=== PATIENT | female | born 1995 | race Two or more races ===

== ENCOUNTER 2018-08-07 19:39 | Inpatient (IN) | payer OTHER ==
[~2018-08-07] VITALS: Ht 154.9 cm; Wt 85.3 kg
--- NOTE | 2018-08-07 19:57 | PHYS DOC ---
Adult General Chief Complaint Chief Complaint: SUICDAL IDEATION HPI HPI Patient is a 23 year old female who presents with drug ingestion, suicide attempt She took 16 pills of Coricidin 5:00pm trying to kill herself. She called her mom who lives in [place]. She found her at walker nearby here in [place]. Patient is depressed with thoughts of suicide. Patient hasn't had prior suicide attempts. She doesn't have any physical complaints. The patient 25 weeks . Review of Systems Review of Systems Constitutional: Denies fever or chills Eyes: Denies change in visual acuity, redness, or eye pain HENT: Denies nasal congestion or sore throat Respiratory: Denies cough or shortness of breath Cardiovascular: Denies chest pain or palpitations GI: Denies abdominal pain, nausea, vomiting, bloody stools or diarrhea : Denies dysuria or hematuria Musculoskeletal: Denies back pain or joint pain Integument: Denies rash or skin lesions Neurologic: Denies headache, focal weakness or sensory changes Endocrine: Denies polyuria or polydipsia All other systems were reviewed and found to be within normal limits, except as documented in this note. Current Medications Current Medications Current Medications Medications (Trade) Dose Ordered Sig/Britt Start Time Stop Time Status Last Admin Dose Admin Ceftriaxone Sodium 50 ml @ 100 mls/hr 1X ONCE 08/07/18 21:30 08/07/18 21:59 DC 08/07/18 21:30 100 MLS/HR Allergies Allergies Allergies Coded Allergies Type Severity Reaction Last Updated Verified No Known Drug Allergies 08/07/18 No Physical Exam Physical Exam Constitutional: Well developed, well nourished, no acute distress, non-toxic appearance. HENT: Normocephalic, atraumatic, bilateral external ears normal, oropharynx moist, no oral exudates, nose normal. Eyes: PERRLA, EOMI, conjunctiva normal, no discharge. Neck: Normal range of motion, no tenderness, supple, no stridor. Cardiovascular:Heart rate regular rhythm, no murmur Lungs & Thorax: Bilateral breath sounds clear to auscultation Abdomen: Gravid, Bowel sounds normal, soft, no tenderness, no masses, no pulsatile masses. Heart tones 156 Skin: Warm, dry, no erythema, no rash. Back: No tenderness, no CVA tenderness. Extremities: No tenderness, no cyanosis, no clubbing, ROM intact, no edema. Neurologic: Alert and oriented X 3, normal motor function, normal sensory function, no focal deficits noted. Psychologic: Affect depressed, depressed mood. Current Patient Data Vital Signs Vital Signs Date Time Temp Pulse Resp B/P (MAP) Pulse Ox O2 Delivery O2 Flow Rate FiO2 08/07/18 21:30 78 16 90/50 (63) Room Air 08/07/18 19:44 98.2 99 98.2 Lab Values Laboratory Tests Test 08/07/18 19:52 08/07/18 19:57 08/07/18 20:05 Urine Collection Type Unknown Urine Color Abena Urine Clarity Clear Urine pH 6.0 Urine Specific [place] 1.025 Urine Protein Negative mg/dL (NEG-TRACE) Urine Glucose (UA) Negative mg/dL (NEG) Urine Ketones (Stick) >=80 mg/dL (NEG) Urine Blood Negative (NEG) Urine Nitrite Negative (NEG) Urine Bilirubin Small (NEG) Urine Urobilinogen Dipstick 0.2 mg/dL (0.2 mg/dL) Urine Leukocyte Esterase Moderate (NEG) Urine RBC 0 /HPF (0-2) Urine WBC 11-20 /HPF (0-4) Urine Squamous Epithelial Cells Many /LPF Urine Bacteria Moderate /HPF (0-FEW) Urine Mucus Marked /LPF Urine Opiates Screen Neg (NEG) Urine Methadone Screen Neg (NEG) Urine Barbiturates Neg (NEG) Urine Phencyclidine Screen Pos (NEG) Urine Amphetamine/Methamphetamine Neg (NEG) Urine Benzodiazepines Screen Neg (NEG) Urine Cocaine Screen Neg (NEG) Urine Cannabinoids Screen Neg (NEG) Urine Ethyl Alcohol Neg (NEG) POC Urine HCG, Qualitative Hcg positive (Negative) White Blood Count 11.9 x10^3/uL (4.0-11.0) H Red Blood Count 3.89 x10^6/uL (3.50-5.40) Hemoglobin 12.4 g/dL (12.0-15.5) Hematocrit 35.7 % (36.0-47.0) L Mean Corpuscular Volume 92 fL (79-100) Mean Corpuscular Hemoglobin 32 pg (25-35) Mean Corpuscular Hemoglobin Concent 35 g/dL (31-37) Red Cell Distribution Width 12.6 % (11.5-14.5) Platelet Count 171 x10^3/uL (140-400) Neutrophils (%) (Auto) 79 % (31-73) H Lymphocytes (%) (Auto) 15 % (24-48) L Monocytes (%) (Auto) 5 % (0-9) Eosinophils (%) (Auto) 0 % (0-3) Basophils (%) (Auto) 1 % (0-3) Neutrophils # (Auto) 9.4 x10^3uL (1.8-7.7) H Lymphocytes # (Auto) 1.7 x10^3/uL (1.0-4.8) Monocytes # (Auto) 0.6 x10^3/uL (0.0-1.1) Eosinophils # (Auto) 0.0 x10^3/uL (0.0-0.7) Basophils # (Auto) 0.1 x10^3/uL (0.0-0.2) Sodium Level 138 mmol/L (136-145) Potassium Level 3.7 mmol/L (3.5-5.1) Chloride Level 103 mmol/L (98-107) Carbon Dioxide Level 23 mmol/L (21-32) Anion Gap 12 (6-14) Blood Urea Nitrogen 6 mg/dL (7-20) L Creatinine 0.5 mg/dL (0.6-1.0) L Estimated GFR (Cockcroft-Gault) 152.9 BUN/Creatinine Ratio 12 (6-20) Glucose Level 77 mg/dL (70-99) Calcium Level 8.8 mg/dL (8.5-10.1) Total Bilirubin 0.4 mg/dL (0.2-1.0) Aspartate Amino Transferase (AST) 21 U/L (15-37) Alanine Aminotransferase (ALT) 28 U/L (14-59) Alkaline Phosphatase 80 U/L (46-116) Total Protein 7.0 g/dL (6.4-8.2) Albumin 3.0 g/dL (3.4-5.0) L Albumin/Globulin Ratio 0.8 (1.0-1.7) L Salicylates Level < 2.8 mg/dL (2.8-20.0) L Salicylate Last Dose Date Unk Salicylate Last Dose Time Unk Acetaminophen Level < 2 mcg/ml (10-30) L Acetaminophen Last Dose Date Unk Acetaminophen Last Dose Time Unk Ethyl Alcohol Level < 10 mg/dL (0-10) Laboratory Tests 08/07/18 20:05 Laboratory Tests 08/07/18 20:05 EKG EKG ECG 2018 NSR @ 88 with normal axis and normal intervals, no ST-T wave changes suggestive of ischemia Radiology/Procedures Radiology/Procedures [] Course & Med Decision Making Course & Med Decision Making Pertinent Labs and Imaging studies reviewed. (See chart for details) Emergency Department Course Patient presents with drug ingestion, 25 weeks DDx- toxic ingestion, metabolic derangement, depression with suicidal ideation Patient was stable in the ED. Labs and ECG were unremarkable. U/A showed UTI. Patient given Rocephin IV. Poison control called and recommended 4 hour observation post ingestion. 20:45 Patient medically cleared for behavioral health assessment. 20:45 Sue from PAT team evaluated patient and there are no beds. Placement pending. 21:20 Case discussed discussed with Dr. Abdullahi who agreed with admission. Patient has UTI and was given Rocephin IV. 21:[address] Etienne who want biophysical profile in AM. Dragon Disclaimer Dragon Disclaimer This electronic medical record was generated, in whole or in part, using a voice recognition dictation system. Departure Departure Impression: Primary Impression: Drug overdose, intentional Additional Impressions: Depression with suicidal ideation Suicide attempt by drug ingestion 25 weeks gestation of UTI (urinary tract infection) Disposition: ADMITTED INPATIENT Admitting Physician: Xie. Jain Condition: STABLE Referrals: NO PCP (PCP) Problem Qualifiers REINA TAVERA MD Aug 07, 2018 19:57
[2018-08-07 20:05] LABS: BILIRUBIN,URINE SMALL (NEG); CLARITY,URINE CLEAR; COLOR,URINE AMBER; NITRITE,URINE NEGATIVE (NEG); PROTEIN,URINE NEGATIVE (NEG-TRACE); UROBILINOGEN,URINE 0.2 mg/dL (0.2 mg/dL)
[2018-08-07 20:10] LABS: AMPHETAMINE/METHAMPHETAMINE NEG (NEG); BARBITURATES NEG (NEG); BENZODIAZEPINES NEG (NEG); CANNABINOIDS NEG (NEG); COCAINE NEG (NEG); METHADONE NEG (NEG); OPIATES NEG (NEG); PHENCYCLIDINE POS (NEG)
[2018-08-07 20:14] LABS: BACTERIA,URINE MODERATE /HPF (0-FEW); RBC,URINE 0 /HPF (0-2); SQUAMOUS EPITHELIAL CELL,UR MANY /LPF
[2018-08-07 20:17] LABS: BASO # 0.1 x10^3/uL (0.0-0.2); BASO % 1 % (0-3); EOS % 0 % (0-3); HEMATOCRIT 35.7 % (36.0-47.0); HEMOGLOBIN 12.4 g/dL (12.0-15.5); LYMPH # 1.7 x10^3/uL (1.0-4.8); LYMPH % 15 % (24-48); MEAN CORPUSCULAR HEMOGLOBIN 32 pg (25-35); MEAN CORPUSCULAR HGB CONC 35 g/dL (31-37); MEAN CORPUSCULAR VOLUME 92 fL (79-100); MONO # 0.6 x10^3/uL (0.0-1.1); MONO % 5 % (0-9); NEUT # 9.4 x10^3uL (1.8-7.7); NEUT % 79 % (31-73); PLATELET COUNT 171 x10^3/uL (140-400); RED BLOOD COUNT 3.89 x10^6/uL (3.50-5.40); RED CELL DISTRIBUTION WIDTH 12.6 % (11.5-14.5); WHITE BLOOD COUNT 11.9 x10^3/uL (4.0-11.0)
[2018-08-07 20:28] LABS: CALCIUM 8.8 mg/dL (8.5-10.1); CREATININE 0.5 mg/dL (0.6-1.0); GFR 152.9; POTASSIUM 3.7 mmol/L (3.5-5.1)
[2018-08-07 20:33] LABS: ACETAMIN < 2 mcg/ml (10-30); ETHANOL < 10 mg/dL (0-10); SALIC < 2.8 mg/dL (2.8-20.0)
[2018-08-07 20:34] LABS: ALBUMIN/GLOBULIN RATIO 0.8 (1.0-1.7); TOTAL BILIRUBIN 0.4 mg/dL (0.2-1.0)
--- NOTE | 2018-08-07 22:04 | EKG ---
[facility] [address] [place] [address] Test Date: 2018-08-07 Test Time: 20:15:23 Pat Name: JEREMIAH VALLECILLO Department: Room: 383 1 Gender: F Sales Enablement Manager: : 1995 Requested By: REINA TAVERA Order Number: [id number] Reading MD: Rafael Sidhu MD Measurements Intervals [place] Rate: 88 P: 58 TN: 136 QRS: 52 QRSD: 70 T: 35 QT: 350 QTc: 427 Interpretive Statements SINUS RHYTHM Electronically Signed On 08-08-2018 13:49:41 CDT by Rafael Sidhu MD
[2018-08-07 22:32] VITALS: BP 126/60
--- NOTE | 2018-08-08 01:57 | EKG ---
[facility] [address] [place] [address] Test Date: 2018-08-07 Test Time: 22:07:38 Pat Name: JEREMIAH VALLECILLO Department: Room: 383 1 Gender: F Vegetable Farm Worker: : 1995 Requested By: REINA TAVERA Order Number: [id number] Reading MD: Rafael Sidhu MD Measurements Intervals [place] Rate: 83 P: 49 CO: 148 QRS: 55 QRSD: 70 T: 39 QT: 368 QTc: 438 Interpretive Statements SINUS RHYTHM Electronically Signed On 08-08-2018 13:50:11 CDT by Rafael Sidhu MD
--- NOTE | 2018-08-08 02:32 | RAD ---
CLINICAL HISTORY: 25WK PT OVERDOSE, DR WANTED BPP TO SEE IF BABY IS MOVING COMPARISON: None available. TECHNIQUE: Transabdominal sonographic evaluation was performed FINDINGS: Today's examination demonstrates a single live intrauterine gestation in variable lie. The placenta is anterior. There is normal movements and tone. breathing was not definitively seen. The amniotic fluid level is 10.7 for a biophysical profile score of 8 out of 8. Heart rate is 127 beats per minute. measurements are: BPD - 6.42 cm = 26 weeks 0 days HC - 23.95 cm = 26 weeks 0 days AC - 21.32 cm =25 weeks 6 day FL - 5.09 cm = 27 weeks 2 days The composite gestational age is 26 weeks and 2 days. The estimated weight is 927 +/- 137 g. IMPRESSION: 1. Single live intrauterine gestation with estimated gestational age of 26 weeks 2 days. heart rate was identified measuring 127 bpm. 2. Biophysical profile score of 6 out of 8. Electronically signed by: Lyle Arias MD (08/08/2018 2:28 AM) [facility]
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
--- NOTE | 2018-08-08 10:49 | PDOC2 ---
CONSULT Date of Consult Date of Consult DATE: 08/08/18 TIME: 10:27 Reason for Consult Reason for Consult: with suicide attempt Referring Physician Referring Physician: Dr. Abdullahi Identification/Chief Complaint Chief Complaint Suicide attempt Source Source: Chart review, Patient History of Present Illness Reason for Visit: 23 y/o @ 25 wks gestation with suicide attempt using OTC cold medications. BPP and NST were normal for gestational age. Pt. wanted to end her life. Her grandmother helps care for her 2 children. Her mother lives in [place]. She feels safe at home. SHe is hesitant to give reason for her suicide attempt other than "not wanting to be here any more." Past Medical History Cardiovascular: No pertinent hx Pulmonary: No pertinent hx GI: No pertinent hx Heme/Onc: No pertinent hx Hepatobiliary: No pertinent hx Psych: Other (no documented h/o of depression) Rheumatologic: No pertinent hx Infectious disease: No pertinent hx ENT: No pertinent hx Renal/: No pertinent hx Endocrine: No pertinent hx Past Surgical History Past Surgical History: No pertinent history Current Problem List Problem List Problems Medical Problems: (1) 25 weeks gestation of Status: Acute (2) Depression with suicidal ideation Status: Acute (3) Drug overdose, intentional Status: Acute (4) Suicide attempt by drug ingestion Status: Acute (5) UTI (urinary tract infection) Status: Acute Current Medications Current Medications Current Medications Ceftriaxone Sodium 50 ml @ 100 mls/hr 1X ONCE IV Last administered on at 21:30; Start 08/07/18 at 21:30; Stop 08/07/18 at 21:59; Status DC Ceftriaxone Sodium (Rocephin) 1 gm Q24H IVP ; Start 08/08/18 at 22:00 Allergies Allergies: Coded Allergies: No Known Drug Allergies (Unverified , 08/07/18) ROS General: YES: Malaise, Appetite; No: Chills, Night Sweats, Fatigue, Other PSYCHOLOGICAL ROS: YES: Depression, Suicidal ideation; No: Anxiety, Behavioral Disorder, Concentration difficultie, Decreased libido , Disorientation, Hallucinations, Hostility, Irritablity, Memory difficulties, Mood Swings, Obsessive thoughts, Physical abuse, Sexual abuse, Sleep disturbances, Other Eyes: No Blurry vision, No Decreased vision, No Double vision, No Dry eyes, No Excessive tearing, No Eye Pain, No Itchy Eyes, No Loss of vision, No Photophobia , No Scotomata, No Uses contacts, No Uses glasses, No Other HEENT: No: Heacaches, Visual Changes, Hearing change, Nasal congestion, Nasal discharge, Oral lesions, Sinus pain, Sore Throat, Epistaxis, Sneezing, Snoring, Tinnitus, Vertigo, Vocal changes, Other ALLERGY AND IMMUNOLOGY: No: Hives, Insect Bite Sensitivity, Itchy/Watery Eyes, Nasal Congestion, Post Nasal Drip, Seasonal Allergies, Other Hematological and Lymphatic: No: Bleeding Problems, Blood Clots, Blood Transfusions, Brusing, Night Sweats, Pallor, Swollen Lymph Nodes, Other ENDOCRINE: No: Breast Changes, Galactorrhea, Hair Pattern Changes, Hot Flashes , Malaise/lethargy, Mood Swings, Palpitations, Polydipsia/polyuria, Skin Changes , Temperature Intolerance, Unexpected Weight Changes, Other Breast: No New/Changing Breast Lumps, No Nipple changes, No Nipple discharge, No Other Respiratory: No: Cough, Hemoptysis, Orthopnea, Pleuritic Pain, Shortness of breath, SOB with excertion, Sputum Changes, Stridor, Tachypnea, Wheezing, Other Cardiovascular: No Chest Pain, No Palpitations, No Orthopnea, No Paroxysmal Noc. Dyspnea, No Edema, No Lt Headedness, No Other Gastrointestinal: No Nausea, No Vomiting, No Abdominal Pain, No Diarrhea, No Constipation, No Melena, No Hematochezia, No Other Physical Exam General: Alert, Cooperative, No acute distress HEENT: PERRLA Lungs: Clear to auscultation Heart: Regular rate Abdomen: Soft, No tenderness Psych/Mental Status: Other (depressed mood) Vitals VITALS Vital Signs Date Time Temp Pulse Resp B/P (MAP) Pulse Ox O2 Delivery O2 Flow Rate FiO2 08/07/18 22:32 98.3 91 20 126/60 (82) Room Air 98.3 08/07/18 19:44 99 Labs Labs Laboratory Tests Test 08/07/18 19:52 08/07/18 19:57 08/07/18 20:05 Urine Collection Type Unknown Urine Color Abena Urine Clarity Clear Urine pH 6.0 Urine Specific [place] 1.025 Urine Protein Negative mg/dL (NEG-TRACE) Urine Glucose (UA) Negative mg/dL (NEG) Urine Ketones (Stick) >=80 mg/dL (NEG) Urine Blood Negative (NEG) Urine Nitrite Negative (NEG) Urine Bilirubin Small (NEG) Urine Urobilinogen Dipstick 0.2 mg/dL (0.2 mg/dL) Urine Leukocyte Esterase Moderate (NEG) Urine RBC 0 /HPF (0-2) Urine WBC 11-20 /HPF (0-4) Urine Squamous Epithelial Cells Many /LPF Urine Bacteria Moderate /HPF (0-FEW) Urine Mucus Marked /LPF Urine Opiates Screen Neg (NEG) Urine Methadone Screen Neg (NEG) Urine Barbiturates Neg (NEG) Urine Phencyclidine Screen Pos (NEG) Urine Amphetamine/Methamphetamine Neg (NEG) Urine Benzodiazepines Screen Neg (NEG) Urine Cocaine Screen Neg (NEG) Urine Cannabinoids Screen Neg (NEG) Urine Ethyl Alcohol Neg (NEG) Bedside Urine HCG, Qualitative Hcg positive (Negative) White Blood Count 11.9 x10^3/uL (4.0-11.0) Red Blood Count 3.89 x10^6/uL (3.50-5.40) Hemoglobin 12.4 g/dL (12.0-15.5) Hematocrit 35.7 % (36.0-47.0) Mean Corpuscular Volume 92 fL (79-100) Mean Corpuscular Hemoglobin 32 pg (25-35) Mean Corpuscular Hemoglobin Concent 35 g/dL (31-37) Red Cell Distribution Width 12.6 % (11.5-14.5) Platelet Count 171 x10^3/uL (140-400) Neutrophils (%) (Auto) 79 % (31-73) Lymphocytes (%) (Auto) 15 % (24-48) Monocytes (%) (Auto) 5 % (0-9) Eosinophils (%) (Auto) 0 % (0-3) Basophils (%) (Auto) 1 % (0-3) Neutrophils # (Auto) 9.4 x10^3uL (1.8-7.7) Lymphocytes # (Auto) 1.7 x10^3/uL (1.0-4.8) Monocytes # (Auto) 0.6 x10^3/uL (0.0-1.1) Eosinophils # (Auto) 0.0 x10^3/uL (0.0-0.7) Basophils # (Auto) 0.1 x10^3/uL (0.0-0.2) Sodium Level 138 mmol/L (136-145) Potassium Level 3.7 mmol/L (3.5-5.1) Chloride Level 103 mmol/L (98-107) Carbon Dioxide Level 23 mmol/L (21-32) Anion Gap 12 (6-14) Blood Urea Nitrogen 6 mg/dL (7-20) Creatinine 0.5 mg/dL (0.6-1.0) Estimated GFR (Cockcroft-Gault) 152.9 BUN/Creatinine Ratio 12 (6-20) Glucose Level 77 mg/dL (70-99) Calcium Level 8.8 mg/dL (8.5-10.1) Total Bilirubin 0.4 mg/dL (0.2-1.0) Aspartate Amino Transf (AST/SGOT) 21 U/L (15-37) Alanine Aminotransferase (ALT/SGPT) 28 U/L (14-59) Alkaline Phosphatase 80 U/L (46-116) Total Protein 7.0 g/dL (6.4-8.2) Albumin 3.0 g/dL (3.4-5.0) Albumin/Globulin Ratio 0.8 (1.0-1.7) Salicylates Level < 2.8 mg/dL (2.8-20.0) Salicylate Last Dose Date Unk Salicylate Last Dose Time Unk Acetaminophen Level < 2 mcg/ml (10-30) Acetaminophen Last Dose Date Unk Acetaminophen Last Dose Time Unk Ethyl Alcohol Level < 10 mg/dL (0-10) Laboratory Tests Test 08/07/18 19:52 08/07/18 19:57 08/07/18 20:05 Urine Collection Type Unknown Urine Color Abena Urine Clarity Clear Urine pH 6.0 Urine Specific [place] 1.025 Urine Protein Negative mg/dL (NEG-TRACE) Urine Glucose (UA) Negative mg/dL (NEG) Urine Ketones (Stick) >=80 mg/dL (NEG) Urine Blood Negative (NEG) Urine Nitrite Negative (NEG) Urine Bilirubin Small (NEG) Urine Urobilinogen Dipstick 0.2 mg/dL (0.2 mg/dL) Urine Leukocyte Esterase Moderate (NEG) Urine RBC 0 /HPF (0-2) Urine WBC 11-20 /HPF (0-4) Urine Squamous Epithelial Cells Many /LPF Urine Bacteria Moderate /HPF (0-FEW) Urine Mucus Marked /LPF Urine Opiates Screen Neg (NEG) Urine Methadone Screen Neg (NEG) Urine Barbiturates Neg (NEG) Urine Phencyclidine Screen Pos (NEG) Urine Amphetamine/Methamphetamine Neg (NEG) Urine Benzodiazepines Screen Neg (NEG) Urine Cocaine Screen Neg (NEG) Urine Cannabinoids Screen Neg (NEG) Urine Ethyl Alcohol Neg (NEG) Bedside Urine HCG, Qualitative Hcg positive (Negative) White Blood Count 11.9 x10^3/uL (4.0-11.0) Red Blood Count 3.89 x10^6/uL (3.50-5.40) Hemoglobin 12.4 g/dL (12.0-15.5) Hematocrit 35.7 % (36.0-47.0) Mean Corpuscular Volume 92 fL (79-100) Mean Corpuscular Hemoglobin 32 pg (25-35) Mean Corpuscular Hemoglobin Concent 35 g/dL (31-37) Red Cell Distribution Width 12.6 % (11.5-14.5) Platelet Count 171 x10^3/uL (140-400) Neutrophils (%) (Auto) 79 % (31-73) Lymphocytes (%) (Auto) 15 % (24-48) Monocytes (%) (Auto) 5 % (0-9) Eosinophils (%) (Auto) 0 % (0-3) Basophils (%) (Auto) 1 % (0-3) Neutrophils # (Auto) 9.4 x10^3uL (1.8-7.7) Lymphocytes # (Auto) 1.7 x10^3/uL (1.0-4.8) Monocytes # (Auto) 0.6 x10^3/uL (0.0-1.1) Eosinophils # (Auto) 0.0 x10^3/uL (0.0-0.7) Basophils # (Auto) 0.1 x10^3/uL (0.0-0.2) Sodium Level 138 mmol/L (136-145) Potassium Level 3.7 mmol/L (3.5-5.1) Chloride Level 103 mmol/L (98-107) Carbon Dioxide Level 23 mmol/L (21-32) Anion Gap 12 (6-14) Blood Urea Nitrogen 6 mg/dL (7-20) Creatinine 0.5 mg/dL (0.6-1.0) Estimated GFR (Cockcroft-Gault) 152.9 BUN/Creatinine Ratio 12 (6-20) Glucose Level 77 mg/dL (70-99) Calcium Level 8.8 mg/dL (8.5-10.1) Total Bilirubin 0.4 mg/dL (0.2-1.0) Aspartate Amino Transf (AST/SGOT) 21 U/L (15-37) Alanine Aminotransferase (ALT/SGPT) 28 U/L (14-59) Alkaline Phosphatase 80 U/L (46-116) Total Protein 7.0 g/dL (6.4-8.2) Albumin 3.0 g/dL (3.4-5.0) Albumin/Globulin Ratio 0.8 (1.0-1.7) Salicylates Level < 2.8 mg/dL (2.8-20.0) Salicylate Last Dose Date Unk Salicylate Last Dose Time Unk Acetaminophen Level < 2 mcg/ml (10-30) Acetaminophen Last Dose Date Unk Acetaminophen Last Dose Time Unk Ethyl Alcohol Level < 10 mg/dL (0-10) Assessment/Plan Assessment/Plan A: 25 wks IUP Major Depression with suicide attempt P: Pt. to be transferred to Psych facility RONNA TRAN Jr, MD Aug 08, 2018 10:49
[2018-08-08 10:52] VITALS: BP 97/47
[2018-08-08] MEDS ORDERED: LORazepam 1 MG TABLET PO ONE (15:45)
[2018-08-08 16:02] VITALS: BP 100/55
[2018-08-08 18:24] VITALS: BP 106/57
[2018-08-08 18:30] VITALS: BP 106/57
[2018-08-08] MEDS ORDERED: cefTRIAXone IM 1 GM VIAL IM ONE (21:00)
[2018-08-08] MEDS ORDERED: cefTRIAXone IV Push 1 GM VIAL. IVP SCH (22:00)
[2018-08-08 23:35] VITALS: BP 99/55
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
[2018-08-09 09:09] LABS: ALBUMIN 2.8 g/dL (3.4-5.0); ALBUMIN/GLOBULIN RATIO 0.8 (1.0-1.7); CALCIUM 8.4 mg/dL (8.5-10.1); CREATININE 0.5 mg/dL (0.6-1.0); GFR 152.9; TOTAL BILIRUBIN 0.2 mg/dL (0.2-1.0); TOTAL PROTEIN 6.4 g/dL (6.4-8.2)
--- NOTE | 2018-08-09 11:13 | PDOC ---
OB Progress Note Date of Service 08/09/18 Time of Evaluation 1110 Problem List Problems Medical Problems: (1) 25 weeks gestation of Status: Acute (2) Depression with suicidal ideation Status: Acute (3) Drug overdose, intentional Status: Acute (4) Suicide attempt by drug ingestion Status: Acute (5) UTI (urinary tract infection) Status: Acute Notes Pt. feeling well. No changes. Lab Laboratory Tests Test 08/07/18 19:52 08/07/18 19:57 08/07/18 20:05 08/09/18 08:35 Urine Collection Type Unknown Urine Color Abena Urine Clarity Clear Urine pH 6.0 Urine Specific [place] 1.025 Urine Protein Negative mg/dL (NEG-TRACE) Urine Glucose (UA) Negative mg/dL (NEG) Urine Ketones (Stick) >=80 mg/dL (NEG) Urine Blood Negative (NEG) Urine Nitrite Negative (NEG) Urine Bilirubin Small (NEG) Urine Urobilinogen Dipstick 0.2 mg/dL (0.2 mg/dL) Urine Leukocyte Esterase Moderate (NEG) Urine RBC 0 /HPF (0-2) Urine WBC 11-20 /HPF (0-4) Urine Squamous Epithelial Cells Many /LPF Urine Bacteria Moderate /HPF (0-FEW) Urine Mucus Marked /LPF Urine Opiates Screen Neg (NEG) Urine Methadone Screen Neg (NEG) Urine Barbiturates Neg (NEG) Urine Phencyclidine Screen Pos (NEG) Urine Amphetamine/Methamphetamine Neg (NEG) Urine Benzodiazepines Screen Neg (NEG) Urine Cocaine Screen Neg (NEG) Urine Cannabinoids Screen Neg (NEG) Urine Ethyl Alcohol Neg (NEG) Bedside Urine HCG, Qualitative Hcg positive (Negative) White Blood Count 11.9 x10^3/uL (4.0-11.0) Red Blood Count 3.89 x10^6/uL (3.50-5.40) Hemoglobin 12.4 g/dL (12.0-15.5) Hematocrit 35.7 % (36.0-47.0) Mean Corpuscular Volume 92 fL (79-100) Mean Corpuscular Hemoglobin 32 pg (25-35) Mean Corpuscular Hemoglobin Concent 35 g/dL (31-37) Red Cell Distribution Width 12.6 % (11.5-14.5) Platelet Count 171 x10^3/uL (140-400) Neutrophils (%) (Auto) 79 % (31-73) Lymphocytes (%) (Auto) 15 % (24-48) Monocytes (%) (Auto) 5 % (0-9) Eosinophils (%) (Auto) 0 % (0-3) Basophils (%) (Auto) 1 % (0-3) Neutrophils # (Auto) 9.4 x10^3uL (1.8-7.7) Lymphocytes # (Auto) 1.7 x10^3/uL (1.0-4.8) Monocytes # (Auto) 0.6 x10^3/uL (0.0-1.1) Eosinophils # (Auto) 0.0 x10^3/uL (0.0-0.7) Basophils # (Auto) 0.1 x10^3/uL (0.0-0.2) Sodium Level 138 mmol/L (136-145) 140 mmol/L (136-145) Potassium Level 3.7 mmol/L (3.5-5.1) 4.0 mmol/L (3.5-5.1) Chloride Level 103 mmol/L (98-107) 105 mmol/L (98-107) Carbon Dioxide Level 23 mmol/L (21-32) 22 mmol/L (21-32) Anion Gap 12 (6-14) 13 (6-14) Blood Urea Nitrogen 6 mg/dL (7-20) 5 mg/dL (7-20) Creatinine 0.5 mg/dL (0.6-1.0) 0.5 mg/dL (0.6-1.0) Estimated GFR (Cockcroft-Gault) 152.9 152.9 BUN/Creatinine Ratio 12 (6-20) 10 (6-20) Glucose Level 77 mg/dL (70-99) 77 mg/dL (70-99) Calcium Level 8.8 mg/dL (8.5-10.1) 8.4 mg/dL (8.5-10.1) Total Bilirubin 0.4 mg/dL (0.2-1.0) 0.2 mg/dL (0.2-1.0) Aspartate Amino Transf (AST/SGOT) 21 U/L (15-37) 17 U/L (15-37) Alanine Aminotransferase (ALT/SGPT) 28 U/L (14-59) 22 U/L (14-59) Alkaline Phosphatase 80 U/L (46-116) 78 U/L (46-116) Total Protein 7.0 g/dL (6.4-8.2) 6.4 g/dL (6.4-8.2) Albumin 3.0 g/dL (3.4-5.0) 2.8 g/dL (3.4-5.0) Albumin/Globulin Ratio 0.8 (1.0-1.7) 0.8 (1.0-1.7) Salicylates Level < 2.8 mg/dL (2.8-20.0) Salicylate Last Dose Date Unk Salicylate Last Dose Time Unk Acetaminophen Level < 2 mcg/ml (10-30) Acetaminophen Last Dose Date Unk Acetaminophen Last Dose Time Unk Ethyl Alcohol Level < 10 mg/dL (0-10) Laboratory Tests Test 08/09/18 08:35 Sodium Level 140 mmol/L (136-145) Potassium Level 4.0 mmol/L (3.5-5.1) Chloride Level 105 mmol/L (98-107) Carbon Dioxide Level 22 mmol/L (21-32) Anion Gap 13 (6-14) Blood Urea Nitrogen 5 mg/dL (7-20) Creatinine 0.5 mg/dL (0.6-1.0) Estimated GFR (Cockcroft-Gault) 152.9 BUN/Creatinine Ratio 10 (6-20) Glucose Level 77 mg/dL (70-99) Calcium Level 8.4 mg/dL (8.5-10.1) Total Bilirubin 0.2 mg/dL (0.2-1.0) Aspartate Amino Transf (AST/SGOT) 17 U/L (15-37) Alanine Aminotransferase (ALT/SGPT) 22 U/L (14-59) Alkaline Phosphatase 78 U/L (46-116) Total Protein 6.4 g/dL (6.4-8.2) Albumin 2.8 g/dL (3.4-5.0) Albumin/Globulin Ratio 0.8 (1.0-1.7) Medications Current Medications Ceftriaxone Sodium 50 ml @ 100 mls/hr 1X ONCE IV Last administered on at 21:30; Start 08/07/18 at 21:30; Stop 08/07/18 at 21:59; Status DC Ceftriaxone Sodium (Rocephin) 1 gm Q24H IVP ; Start 08/08/18 at 22:00 Lorazepam (Ativan) 1 mg 1X ONCE PO Last administered on 08/08/18at 15:27; Start 08/08/18 at 15:45; Stop 08/08/18 at 15:46; Status DC Ceftriaxone Sodium (Rocephin Im) 1 gm 1X ONCE IM Last administered on at 22:07; Start 08/08/18 at 21:00; Stop 08/08/18 at 21:01; Status DC Assessment 25 wks IUP Major Depression Plan of Care: Continue current Tx, Mgmt RONNA TRAN Jr, MD Aug 09, 2018 11:13
[2018-08-09 11:45] VITALS: BP 94/55
[2018-08-09] MEDS ORDERED: PSYLLIUM HUSK (SUGAR FREE) 1 PKT PACKET PO SCH (13:30)
[2018-08-09 18:27] VITALS: BP 122/61
[2018-08-09 20:25] VITALS: BP 113/58
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
[2018-08-10 08:28] VITALS: BP 116/61
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
[2018-08-10] MEDS ORDERED: PSYL3.4P PO (14:00)
--- NOTE | 2018-08-10 14:01 | DISCH ---
DISCHARGE DISCHARGE INFORMATION: DISCHARGE DATE: Aug 10, 2018 FINAL DIAGNOSIS Problems Medical Problems: (1) 25 weeks gestation of Status: Acute (2) Depression with suicidal ideation Status: Acute (3) Drug overdose, intentional Status: Acute (4) Suicide attempt by drug ingestion Status: Acute (5) UTI (urinary tract infection) Status: Acute CONDITION ON DISCHARGE: Stable CODE STATUS: Code Status: Full CORRECTION: SNF STAY <30 DAYS: No HOSPICE: HOSPICE: No HOSPICE EVAL & TREAT: No LTAC: ADMIT TO LTAC: No POST DISCHARGE ORDERS: ACTIVITY ORDERS: No restrictions WEIGHT BEARING STATUS: No restrictions DIET AFTER DISCHARGE: Regular CHECKS AFTER DISCHARGE: CHECKS AFTER DISCHARGE: Check blood press - daily FOLLOW-UP: PHYSICIAN FOLLOW-UP: Dr. Etienne - Fieldwork Coordinator PAUL KIDD MD Aug 10, 2018 14:01
[2018-08-10 16:25] VITALS: BP 100/52
== END 2018-08-10 16:35 | DRG 831 ==
LOC: ER 19:39 → 3 SO LND 21:51
PROVIDERS: ADMIT Internal Medicine; ATTEND Internal Medicine
DX: O9A.212 Injury, poisoning and certain other consequences of external causes complicating pregnancy, second trimester (principal); E43 Unspecified severe protein-calorie malnutrition; Z3A.25 25 weeks gestation of pregnancy; Y92.89 Other specified places as the place of occurrence of the external cause; F32.9 Major depressive disorder, single episode, unspecified; O99.342 Other mental disorders complicating pregnancy, second trimester; O23.42 Unspecified infection of urinary tract in pregnancy, second trimester; O21.2 Late vomiting of pregnancy; O99.332 Smoking (tobacco) complicating pregnancy, second trimester; T39.1X2A Poisoning by 4-Aminophenol derivatives, intentional self-harm, initial encounter; T45.0X2A Poisoning by antiallergic and antiemetic drugs, intentional self-harm, initial encounter; T48.3X2A Poisoning by antitussives, intentional self-harm, initial encounter; K59.00 Constipation, unspecified; F17.210 Nicotine dependence, cigarettes, uncomplicated; O25.12 Malnutrition in pregnancy, second trimester
CPT/HCPCS: 36415; 76819; 80053; 80307; 80329; 81001; 81025; 85025; 87086; 93005; G0480; G6039; J0690; J0696; G0479

== ENCOUNTER 2019-02-02 17:00 | Emergency (ER) | payer SELFPAY ==
[~2019-02-02] VITALS: Ht 157.5 cm; Wt 81.6 kg
[~2019-02-02 17:00] MED LIST: PSYL3.4P PO
[2019-02-02] MEDS ORDERED: DEXAMETHASONE SOD PHOS 20 MG/5 ML VIAL. IM ONE (18:00)
[2019-02-02] MEDS ORDERED: diphenhydrAMINE HCL 25 MG CAPSULE PO ONE (18:00)
--- NOTE | 2019-02-02 18:03 | PHYS DOC ---
Past Medical History Past Medical History: No Pertinent History Past Surgical History: No Surgical History Alcohol Use: Occasionally Drug Use: None Adult General Chief Complaint Chief Complaint: ALLERGIC REACTION HPI HPI Patient is a 23 year old female was presenting with chief complaint of a bug bite or some type of bite in the back of her throat. Apparent she was having intercourse she thinks something called into her mouth. Currently feels a little swollen back there but breathing fine Review of Systems Review of Systems Constitutional: Denies fever or chills [] Cardiovascular: No additional information not addressed in HPI [] GI: Denies abdominal pain, nausea, vomiting, bloody stools or diarrhea [] : Denies dysuria or hematuria [] All other systems were reviewed and found to be within normal limits, except as documented in this note. Current Medications Current Medications Current Medications Medications (Trade) Dose Ordered Sig/Britt Start Time Stop Time Status Last Admin Dose Admin Dexamethasone Sodium Phosphate (Decadron) 10 mg 1X ONCE 02/02/19 18:00 02/02/19 18:01 DC Diphenhydramine HCl (Benadryl) 50 mg 1X ONCE 02/02/19 18:00 02/02/19 18:01 DC Allergies Allergies Allergies Coded Allergies Type Severity Reaction Last Updated Verified No Known Drug Allergies 08/07/18 No Physical Exam Physical Exam Constitutional: Well developed, well nourished, no acute distress, non-toxic appearance. [] HENT: Normocephalic, atraumatic, bilateral external ears normal, oropharynx moist, no oral exudates, nose normal. []There is a small pinpoint erythematous lesion on the posterior oropharynx no swelling uvula normal Eyes: PERRLA, EOMI, conjunctiva normal, no discharge. [] Neck: Normal range of motion, no tenderness, supple, no stridor. [] Cardiovascular:Heart rate regular rhythm, no murmur [] Lungs & Thorax: Bilateral breath sounds clear to auscultation [] Abdomen: Bowel sounds normal, soft, no tenderness, no masses, no pulsatile masses. [] Skin: Warm, dry, no erythema, no rash. [] Back: No tenderness, no CVA tenderness. [] Extremities: No tenderness, no cyanosis, no clubbing, ROM intact, no edema. [] Neurologic: Alert and oriented X 3, normal motor function, normal sensory function, no focal deficits noted. [] Psychologic: Affect normal, judgement normal, mood normal. [] Current Patient Data Vital Signs Vital Signs Date Time Temp Pulse Resp B/P (MAP) Pulse Ox O2 Delivery O2 Flow Rate FiO2 02/02/19 17:26 98.0 98 16 131/78 (95) 97 Room Air 98.0 EKG EKG [] Radiology/Procedures Radiology/Procedures [] Course & Med Decision Making Course & Med Decision Making Pertinent Labs and Imaging studies reviewed. (See chart for details) []Possibly some sort of a superficial bite to the posterior oral pharynx patient was given a dose of Decadron due to report of some sensation of throat swelling however no obvious evidence of this on exam Benadryl was also given patient is stable for discharge Dragon Disclaimer Dragon Disclaimer This electronic medical record was generated, in whole or in part, using a voice recognition dictation system. Departure Departure Impression: Primary Impression: Allergic reaction Disposition: HOME, SELF-CARE Condition: STABLE Patient Instructions: Sore Throat, [id number] THUAN SANTIAGO MD Feb 02, 2019 18:03
[2019-02-02 18:15] VITALS: BP 115/64
== END 2019-02-02 18:29 | disposition home or self-care (01) ==
LOC: ER 17:00
DX: T63.481A Toxic effect of venom of other arthropod, accidental (unintentional), initial encounter (principal); Y92.89 Other specified places as the place of occurrence of the external cause
CPT/HCPCS: 96372; 99283; J1100; Q0163

== ENCOUNTER 2019-09-08 04:52 | Emergency (ER) | payer MEDICAID ==
[~2019-09-08] VITALS: Ht 157.5 cm; Wt 81.6 kg
--- NOTE | 2019-09-08 05:18 | PHYS DOC ---
Past Medical History Past Medical History: No Pertinent History (STEVO JIMENEZ MD) Past Surgical History: No Surgical History (STEVO JIMENEZ MD) Alcohol Use: Occasionally Drug Use: None (STEVO JIMENEZ MD) Adult General Chief Complaint Chief Complaint: ABDOMINAL PAIN IN HPI HPI 24-year-old female presents to emergency department with complaints of abdominal pain- left upper quadrant/back pain. Patient is a 16 week, with LMP 05/15/19. Patient states she developed abdominal as well as back pain around 11 this evening states she attempted to drink water, walk as well as rest without significant improvement. She contacted the [facility] which is where her [facility] is located. She denies any vaginal discharge/vaginal bleeding/leakage of fluid. She describes her pain as feeling as if she is in labor. Patient around the same time states she developed nausea, vomiting x 2, chills. Patient states she has not felt the baby move however states with this she has not started feeling the baby move as of yet. Nothing makes her symptoms worse or better. (STEVO JIMENEZ MD) Review of Systems Review of Systems Constitutional: chills HENT: Denies nasal congestion or sore throat [] Respiratory: Denies cough or shortness of breath [] Cardiovascular: No additional information not addressed in HPI [] GI: + abdominal pain, nausea, vomiting, no bloody stools or diarrhea [] : Denies dysuria or hematuria [] Musculoskeletal: + back pain Integument: Denies rash or skin lesions [] Neurologic: Denies headache, focal weakness or sensory changes [] All other systems were reviewed and found to be within normal limits, except as documented in this note. (STEVO JIMENEZ MD) Current Medications Current Medications Current Medications Medications (Trade) Dose Ordered Sig/Britt Start Time Stop Time Status Last Admin Dose Admin Ondansetron HCl (Zofran) 4 mg 1X ONCE 09/08/19 06:15 09/08/19 06:16 DC (EDI QUIROGA MD) Allergies Allergies Allergies Coded Allergies Type Severity Reaction Last Updated Verified No Known Drug Allergies 08/07/18 No (EDI QUIROGA MD) Physical Exam Physical Exam Constitutional: Well developed, well nourished, no acute distress, non-toxic appearance. [] HENT: Normocephalic, atraumatic, bilateral external ears normal, oropharynx moist, no oral exudates, nose normal. [] Eyes: PERRLA, EOMI, conjunctiva normal, no discharge. [] Neck: Normal range of motion, no tenderness, supple, no stridor. [] Cardiovascular:Heart rate regular rhythm, no murmur [] Lungs & Thorax: Bilateral breath sounds clear to auscultation [] Abdomen: Bowel sounds normal, soft, TTP left upper quadrant, no masses, no pulsatile masses. [] Skin: Warm, dry, no erythema, no rash. [] Back: No tenderness, no CVA tenderness. [] Extremities: No tenderness, no edema. [] Neurologic: Alert and oriented X 3, no focal deficits noted. [] Psychologic: Affect normal, judgement normal, mood normal. [] Speculum Exam: + white discharge present, no leakage of fluid, bleeding, or opening of cervical os (STEVO JIMENEZ MD) Current Patient Data Vital Signs Vital Signs Date Time Temp Pulse Resp B/P (MAP) Pulse Ox O2 Delivery O2 Flow Rate FiO2 09/08/19 05:02 97.3 80 18 118/68 (85) 98 Room Air 97.3 (EDI QUIROGA MD) Lab Values Laboratory Tests Test 09/08/19 05:30 White Blood Count 8.6 x10^3/uL (4.0-11.0) Red Blood Count 4.01 x10^6/uL (3.50-5.40) Hemoglobin 12.7 g/dL (12.0-15.5) Hematocrit 36.7 % (36.0-47.0) Mean Corpuscular Volume 92 fL (79-100) Mean Corpuscular Hemoglobin 32 pg (25-35) Mean Corpuscular Hemoglobin Concent 35 g/dL (31-37) Red Cell Distribution Width 12.8 % (11.5-14.5) Platelet Count 179 x10^3/uL (140-400) Neutrophils (%) (Auto) 67 % (31-73) Lymphocytes (%) (Auto) 24 % (24-48) Monocytes (%) (Auto) 7 % (0-9) Eosinophils (%) (Auto) 1 % (0-3) Basophils (%) (Auto) 1 % (0-3) Neutrophils # (Auto) 5.8 x10^3/uL (1.8-7.7) Lymphocytes # (Auto) 2.1 x10^3/uL (1.0-4.8) Monocytes # (Auto) 0.6 x10^3/uL (0.0-1.1) Eosinophils # (Auto) 0.1 x10^3/uL (0.0-0.7) Basophils # (Auto) 0.1 x10^3/uL (0.0-0.2) Urine Collection Type Unknown Urine Color Yellow Urine Clarity Cloudy Urine pH 6.0 Urine Specific Baxter >=1.030 Urine Protein Negative mg/dL (NEG-TRACE) Urine Glucose (UA) Negative mg/dL (NEG) Urine Ketones (Stick) Negative mg/dL (NEG) Urine Blood Negative (NEG) Urine Nitrite Negative (NEG) Urine Bilirubin Negative (NEG) Urine Urobilinogen Dipstick 0.2 mg/dL (0.2 mg/dL) Urine Leukocyte Esterase Moderate (NEG) Urine RBC 0 /HPF (0-2) Urine WBC 11-20 /HPF (0-4) Urine Bacteria Few /HPF (0-FEW) Maternal Serum HCG Beta Subunit 96520 mIU/mL (0-5) H Sodium Level 138 mmol/L (136-145) Potassium Level 3.6 mmol/L (3.5-5.1) Chloride Level 103 mmol/L (98-107) Carbon Dioxide Level 22 mmol/L (21-32) Anion Gap 13 (6-14) Blood Urea Nitrogen 7 mg/dL (7-20) Creatinine 0.5 mg/dL (0.6-1.0) L Estimated GFR (Cockcroft-Gault) 151.6 BUN/Creatinine Ratio 14 (6-20) Glucose Level 87 mg/dL (70-99) Calcium Level 8.5 mg/dL (8.5-10.1) Total Bilirubin 0.2 mg/dL (0.2-1.0) Aspartate Amino Transferase (AST) 12 U/L (15-37) L Alanine Aminotransferase (ALT) 12 U/L (14-59) L Alkaline Phosphatase 52 U/L (46-116) Total Protein 7.2 g/dL (6.4-8.2) Albumin 3.0 g/dL (3.4-5.0) L Albumin/Globulin Ratio 0.7 (1.0-1.7) L Laboratory Tests 09/08/19 05:30 Laboratory Tests 09/08/19 05:30 Microbiology 09/08/19 Wet Prep - Final, Complete (EDI QUIROGA MD) EKG EKG [] (STEVO JIMENEZ MD) Radiology/Procedures Radiology/Procedures [] (STEVO JIMENEZ MD) Radiology/Procedures [facility] [address] [place] [address] IMAGING REPORT Signed PATIENT: JEREMIAH VALLECILLOACCOUNT: [id number] : 1995 LOCATION: ER AGE: 24 SEX: F EXAM STATUS: REG ER ORD. PHYSICIAN: STEVO JIMENEZ MD REASON: abd pain in , cramping, 16 weeks PROCEDURE: OB LIMITED Indication:Abdominal pain in , cramping. 16 weeks . TECHNIQUE: Ultrasound OB limited. COMPARISON: None FINDINGS: Cervix is closed and measures 4.2 cm in length. Single intrauterine seen in cephalic presentation. Placenta lies anterior in location. Heart rate 143 bpm. Abdominal circumference measures 12.54 cm corresponding to gestation age of 18 weeks 1 day. Femoral length measures 2.55 cm corresponding to estimated gestation age of 17 weeks 5 days. Head circumference measures 14.16 cm corresponding to estimated gestation age of 17 weeks 3 days. Biparietal diameter measures 3.76 cm corresponding to estimated gestation age of 17 weeks 3 days. IMPRESSION: Single live viable intrauterine corresponding to estimated gestation age of 17 weeks 5 days and due date of 02/11/2020.. Electronically signed by: Raymundo Kimball DO (09/08/2019 6:30 AM) [facility] DICTATED and SIGNED BY: RAYMUNDO KIMBALL DO DATE: 09/08/19 0630 (EDI QUIROGA MD) Course & Med Decision Making Course & Med Decision Making Pertinent Labs and Imaging studies reviewed. (See chart for details) []24-year-old female presents to emergency department with complaints of abdominal pain- left upper quadrant/back pain. Patient is a 16 week, with LMP 05/15/19. Patient states she developed abdominal as well as back pain around 11 this evening states she attempted to drink water, walk as well as rest without significant improvement. She contacted the [facility] which is where her [facility] is located. She denies any vaginal discharge/vaginal bleeding/leakage of fluid. She describes her pain as feeling as if she is in labor. Patient around the same time states she developed nausea, vomiting x 2, chills. Patient states she has not felt the baby move however states with this she has not started feeling the baby move as of yet. Nothing makes her symptoms worse or better. Speculum exam completed Labs/Imaging pending Discussed case with oncoming physician Dr. Quiroga regarding patient presentation and initial complaints. Care transferred to her at 0600 - disposition per Dr. Quiroga (STEVO JIMENEZ MD) Course & Med Decision Making Evaluation of patient in ER showed 24-year-old patient at 16 weeks of gestation with complaining of cramping abdominal pain since midnight. Patient states she had a bowel movement in ER and felt better. Patient had unremarkable CBC and CMP and OB ultrasound. UA showed UTI. She refused to have IV line and Zofran and pain medication in ER. Plan discharge patient home with diagnose of urinary tract infection in . (EDI QUIROGA MD) Dragon Disclaimer Dragon Disclaimer This electronic medical record was generated, in whole or in part, using a voice recognition dictation system. (STEVO JIMENEZ MD) Departure Departure Impression: Primary Impression: Urinary tract infection Additional Impression: Abdominal pain in Disposition: HOME, SELF-CARE (at 0650) Condition: STABLE Referrals: NO PCP (PCP) Patient Instructions: Abdominal Pain During , - Urinary Tract Infection Additional Instructions: Drink plenty of liquids Follow-up with your [facility] physician in 3-5 days Return to ER if not getting better Take [id number] Tylenol as needed for pain Scripts Cephalexin (KEFLEX) 500 Mg Capsule 1 CAP PO Q8HRS, #21 CAP 0 Refills Prov: EDI QUIROGA MD 09/08/19 Problem Qualifiers Primary Impression: Urinary tract infection Urinary tract infection type: site unspecified Hematuria presence: without hematuria Qualified Codes: N39.0 - Urinary tract infection, site not specified Additional Impression: Abdominal pain in Trimester: second trimester Qualified Codes: O26.892 - Other specified related conditions, second trimester; R10.9 - Unspecified abdominal pain STEVO JIMENEZ MD Sep 08, 2019 05:18 EDI QUIROGA MD Sep 08, 2019 06:54
[2019-09-08 05:50] LABS: BILIRUBIN,URINE NEGATIVE (NEG); CLARITY,URINE CLOUDY; COLOR,URINE YELLOW; NITRITE,URINE NEGATIVE (NEG); PROTEIN,URINE NEGATIVE (NEG-TRACE); UROBILINOGEN,URINE 0.2 mg/dL (0.2 mg/dL)
[2019-09-08 05:54] LABS: BASO # 0.1 x10^3/uL (0.0-0.2); BASO % 1 % (0-3); EOS # 0.1 x10^3/uL (0.0-0.7); EOS % 1 % (0-3); HEMATOCRIT 36.7 % (36.0-47.0); HEMOGLOBIN 12.7 g/dL (12.0-15.5); LYMPH # 2.1 x10^3/uL (1.0-4.8); LYMPH % 24 % (24-48); MEAN CORPUSCULAR HEMOGLOBIN 32 pg (25-35); MEAN CORPUSCULAR HGB CONC 35 g/dL (31-37); MEAN CORPUSCULAR VOLUME 92 fL (79-100); MONO # 0.6 x10^3/uL (0.0-1.1); MONO % 7 % (0-9); NEUT # 5.8 x10^3/uL (1.8-7.7); NEUT % 67 % (31-73); PLATELET COUNT 179 x10^3/uL (140-400); RED BLOOD COUNT 4.01 x10^6/uL (3.50-5.40); RED CELL DISTRIBUTION WIDTH 12.8 % (11.5-14.5); WHITE BLOOD COUNT 8.6 x10^3/uL (4.0-11.0)
[2019-09-08 06:10] LABS: CALCIUM 8.5 mg/dL (8.5-10.1); CREATININE 0.5 mg/dL (0.6-1.0); GFR 151.6; POTASSIUM 3.6 mmol/L (3.5-5.1)
[2019-09-08 06:11] LABS: ALBUMIN/GLOBULIN RATIO 0.7 (1.0-1.7); BACTERIA,URINE FEW /HPF (0-FEW); RBC,URINE 0 /HPF (0-2); TOTAL BILIRUBIN 0.2 mg/dL (0.2-1.0); TOTAL PROTEIN 7.2 g/dL (6.4-8.2)
[2019-09-08] MEDS ORDERED: ONDANSETRON PF 4 MG/2 ML VIAL. IV ONE (06:15)
--- NOTE | 2019-09-08 06:33 | RAD ---
Indication:Abdominal pain in , cramping. 16 weeks . TECHNIQUE: Ultrasound OB limited. COMPARISON: None FINDINGS: Cervix is closed and measures 4.2 cm in length. Single intrauterine seen in cephalic presentation. Placenta lies anterior in location. Heart rate 143 bpm. Abdominal circumference measures 12.54 cm corresponding to gestation age of 18 weeks 1 day. Femoral length measures 2.55 cm corresponding to estimated gestation age of 17 weeks 5 days. Head circumference measures 14.16 cm corresponding to estimated gestation age of 17 weeks 3 days. Biparietal diameter measures 3.76 cm corresponding to estimated gestation age of 17 weeks 3 days. IMPRESSION: Single live viable intrauterine corresponding to estimated gestation age of 17 weeks 5 days and due date of 02/11/2020.. Electronically signed by: Raymundo Kimball DO (09/08/2019 6:30 AM) [facility]
[2019-09-08] MEDS ORDERED: CEPH-264 PO (06:53)
[2019-09-08 07:00] VITALS: BP 112/58
== END 2019-09-08 07:05 | disposition home or self-care (01) ==
LOC: ER 04:52
DX: O23.42 Unspecified infection of urinary tract in pregnancy, second trimester (principal); O21.9 Vomiting of pregnancy, unspecified; Z3A.16 16 weeks gestation of pregnancy
CPT/HCPCS: 36415; 76815; 80053; 81001; 84702; 85025; 87086; 99285; Q0111

== ENCOUNTER 2020-02-24 17:45 | Emergency (ER) | payer MEDICAID ==
[~2020-02-24] VITALS: Ht 157.5 cm; Wt 83.0 kg
[~2020-02-24 17:45] MED LIST changes: +CEPH-264 PO
[2020-02-24 17:55] VITALS: BP 131/79
[2020-02-24] MEDS ORDERED: LIDOCAINE 2% TOPICAL JELLY 30GM TUBE. TP ONE (18:30)
--- NOTE | 2020-02-24 18:53 | PHYS DOC ---
Past Medical History Past Medical History: No Pertinent History Past Surgical History: No Surgical History Smoking Status: Current Some Day Smoker Alcohol Use: None Drug Use: None General Adult EDM: Chief Complaint: HEMORRHOIDS HPI: HPI: Patient is a 24 year old female patient 4 para 4 who had a vaginal delivery 5 days ago the presents to the ED today complaining of rectal hemorrhoid. Patient states she has had the hemorrhoids during her . She states she had a vaginal delivery 5 days ago and they seem to have gotten worse. She reports a vaginal delivery was done at a [facility] [place], she states she had no complications from the vaginal delivery apart from the hemorrhoids that symptoms gotten worse. She states she has been trying sitz baths, Tucks with no relief. She reports she followed up with her PCP at [facility] who recommended she come to the ED and have the hemorrhoid drained but states the PCP had sent rx for lidocaine cream to the pharmacy and made a GI outpatient consult for her. She is stating she will not leave the ED unless we drain the hemorrhoid. Denies any vaginal tears during her delivery. Review of Systems: Review of Systems: Constitutional: Denies fever or chills. [] Eyes: Denies change in visual acuity. [] HENT: Denies nasal congestion or sore throat. [] Respiratory: Denies cough or shortness of breath. [] Cardiovascular: Denies chest pain or edema. [] GI: Reports rectal hemorrhoids. Denies abdominal pain, nausea, vomiting, bloody stools or diarrhea. [] : Denies dysuria. [] Musculoskeletal: Denies back pain or joint pain. [] Integument: Denies rash. [] Neurologic: Denies headache, focal weakness or sensory changes. [] Psychiatric: Denies depression or anxiety. [] Heart Score: Risk Factors: Risk Factors: DM, Current or recent (<one month) smoker, HTN, HLP, family history of CAD, obesity. Risk Scores: Score 0 - 3: 2.5% MACE over next 6 weeks - Discharge Home Score 4 - 6: 20.3% MACE over next 6 weeks - Admit for Clinical Observation Score 7 - 10: 72.7% MACE over next 6 weeks - Early Invasive Strategies Current Medications: Current Medications Medications (Trade) Dose Ordered Sig/Britt Start Time Stop Time Status Last Admin Dose Admin Lidocaine HCl (Xylocaine 2% Topical 30gm Tube) 1 ekaterina 1X ONCE 02/24/20 18:30 02/24/20 18:31 DC Allergies: Allergies: Allergies Coded Allergies Type Severity Reaction Last Updated Verified No Known Drug Allergies 08/07/18 No Physical Exam: PE: Constitutional: Well developed, well nourished, no acute distress, non-toxic appearance. [] HENT: Normocephalic, atraumatic, bilateral external ears normal, oropharynx moist, no oral exudates, nose normal. [] Eyes: PERRLA, EOMI, conjunctiva normal, no discharge. [] Neck: Normal range of motion, no tenderness, supple, no stridor. [] Cardiovascular:Heart rate regular rhythm, no murmur [] Lungs & Thorax: Bilateral breath sounds clear to auscultation [] Abdomen: Bowel sounds normal, soft, no tenderness, no masses, no pulsatile masses. [] Rectal exam External rectum has what appears to be a small nonthrombosed hemorrhoid. Skin: Warm, dry, no erythema, no rash. [] Back: No tenderness, no CVA tenderness. [] Extremities: No tenderness, no cyanosis, no clubbing, ROM intact, no edema. [] Neurologic: Alert and oriented X 3, normal motor function, normal sensory function, no focal deficits noted. [] Psychologic: Patient is tearful. Current Patient Data: Vital Signs: Vital Signs Date Time Temp Pulse Resp B/P (MAP) Pulse Ox O2 Delivery O2 Flow Rate FiO2 02/24/20 17:55 98.8 113 16 131/79 (96) 98 Room Air 98.8 EKG: EKG: [] Radiology/Procedures: Radiology/Procedures: [] Course & Med Decision Making: Course & Med Decision Making Pertinent Labs and Imaging studies reviewed. (See chart for details) This is a 24-year-old female patient 4 para 4 who had a vaginal delivery 5 days ago presenting to the ED today complaining of hemorrhoids. She has had a hemorrhoid since she was but have gotten worse after vaginal delivery in a natural birthing center 5 days ago. She has tried Tucks, sits baths with no relief. She presents today requesting for procedure to be done to drain them otherwise she is not leaving. I spoke to Dr. Leo he stated patient can be admitted and he will follow-up with patient in the morning. Informed patient Dr. Leo will see her in the morning and she can be admitted in the time being. Patient started crying stating she cannot stay now because her baby is only 5 days old and she is breast-feeding. She states right now she has to leave and go take care of her baby. Offered her lidocaine cream in the ED, she could not wait until the cream was sent from pharmacy. She walked away stating she has spent 5 hours today trying to find someone to drain her hemorrhoid but no one will do it right away. Informed her it is not a procedure that can be undertaken easily in the ED typically most surgeons prefer to drain them in OR due to the risk involved including uncontrolled bleeding. She left without her paperwork Deisi Disclaimer: Deisi Disclaimer: This electronic medical record was generated, in whole or in part, using a voice recognition dictation system. Departure Departure Impression: Primary Impression: Hemorrhoids during , delivered Disposition: HOME, SELF-CARE Condition: STABLE Referrals: NO PCP (PCP) SHARON CORDOVA [employer] February 24, 2020 18:53
== END 2020-02-24 18:51 | disposition home or self-care (01) ==
LOC: ER 17:45
DX: O87.2 Hemorrhoids in the puerperium (principal); O99.335 Smoking (tobacco) complicating the puerperium
CPT/HCPCS: 99281